=== PATIENT | male | born 1975 | race Hispanic/Latino ===

== ENCOUNTER 2018-04-12 02:25 | Emergency (ER) | payer BC, MEDICAID ==
[2018-04-12] MEDS ORDERED: Ketorolac Tromethamine 60 MG/2 ML VIAL ONE (03:21)
[2018-04-12] MEDS ORDERED: Adacel (T-DAP) 0.5 ML VIAL ONE (03:27)
--- NOTE | 2018-04-12 08:06 | RAD ---
RIGHT KNEE FOUR VIEWS: History: Right knee pain. FINDINGS/IMPRESSION: No fracture or dislocation are seen. No radiopaque foreign body is identified. POS: [id number]
== END 2018-04-12 04:01 | disposition home or self-care (01) ==
LOC: ERS 02:25
DX: M25.561 Pain in right knee (principal); Z79.899 Other long term (current) drug therapy
CPT/HCPCS: 90471; 90715; 96372; J1885

== ENCOUNTER 2018-04-14 13:58 | Emergency (ER) | payer BC | END 2018-04-14 15:00 | disposition home or self-care (01) | LOC: ERS 13:58 | DX: S80.211A Abrasion, right knee, initial encounter (principal); M54.31 Sciatica, right side; W25.XXXA Contact with sharp glass, initial encounter | CPT/HCPCS: 99283 ==

== ENCOUNTER 2018-09-24 10:05 | Emergency (ER) | payer BC | END 2018-09-24 12:21 | disposition home or self-care (01) | LOC: ERS 10:05 | DX: S46.912A Strain of unspecified muscle, fascia and tendon at shoulder and upper arm level, left arm, initial encounter (principal); I10 Essential (primary) hypertension; Z79.891 Long term (current) use of opiate analgesic; X58.XXXA Exposure to other specified factors, initial encounter | CPT/HCPCS: 93005 ==

== ENCOUNTER 2019-03-17 21:53 | Emergency (ER) | payer BC | END 2019-03-17 22:06 | disposition home or self-care (01) | LOC: ERS 21:53 | DX: G89.29 Other chronic pain (principal); M25.512 Pain in left shoulder; I10 Essential (primary) hypertension; Z79.899 Other long term (current) drug therapy | CPT/HCPCS: 99281 ==

== ENCOUNTER 2019-03-28 18:04 | Emergency (ER) | payer BC ==
[2019-03-28] MEDS ORDERED: Dicyclomine 20 MG TAB ONE (20:44)
[2019-03-28 20:49] LABS: #Basophils 0.1 thou/uL (0.0-0.2); #Eosinphils 0.3 thou/uL (0.0-0.7); #Lymphocytes 1.5 thou/uL (1.20-3.40); #Monocytes 0.7 thou/uL (0.11-0.59); #Neutrophils 7.2 thou/uL (1.40-6.50); %Basophils 0.6 % (0.0-1.0); %Eosinophils 2.8 % (0.0-10.0); %Lymphocytes 15.7 % (21.0-51.0); %Monocytes 6.8 % (0.0-10.0); %Neutrophils 74.2 % (42.0-75.0); Mean Corpuscular HGB CONC 34.7 g/dL (32.0-36.0); Mean Corpuscular Hemoglobin 33.4 pg (27.0-31.0); Mean Corpuscular Volume 96.2 fL (78.0-98.0); Platelet Count 324 thou/uL (130-400); RBC Distribution Width 11.7 % (11.5-14.5); White Blood Cell (WBC) Count 9.7 thou/uL (4.8-10.8)
[2019-03-28 21:09] LABS: ALT (SGPT) 48 U/L (8-55); AST (SGOT) 25 U/L (5-34); Albumin 4.3 g/dL (3.5-5.0); Alkaline Phosphatase 130 U/L (40-150); Anion Gap 12 mmol/L (10-20); BUN (Urea Nitrogen) 6 mg/dL (8.9-20.6); Bilirubin, Total 0.7 mg/dL (0.2-1.2); Calc. Creatinine Clearance 0 mL/min (70-130); Carbon Dioxide 26 mmol/L (22-29); Chloride 103 mmol/L (98-107); Estimated GFR-MDRD Greater than 90; Globulin 3.2 g/dL (2.4-3.5); Glucose 100 mg/dL (70-105); Potassium 3.7 mmol/L (3.5-5.1); Protein, Total 7.5 g/dL (6.0-8.3); Sodium 137 mmol/L (136-145)
== END 2019-03-28 21:59 | disposition home or self-care (01) ==
LOC: ERS 18:04
DX: R19.7 Diarrhea, unspecified (principal); I10 Essential (primary) hypertension; Z79.899 Other long term (current) drug therapy
CPT/HCPCS: 36415; 80053; 85025; 99284

== ENCOUNTER 2019-04-30 03:25 | Emergency (ER) | payer BC ==
[2019-04-30] MEDS ORDERED: Ketorolac Tromethamine 60 MG/2 ML VIAL ONE (04:00)
== END 2019-04-30 04:20 | disposition home or self-care (01) ==
LOC: ERS 03:25
DX: G89.18 Other acute postprocedural pain (principal)
CPT/HCPCS: 96372; 99282; J1885

== ENCOUNTER 2022-03-06 11:27 | Emergency (ER) | payer OTHER ==
[2022-03-06] MEDS ORDERED: Ibuprofen 800 MG TAB ONE (12:12)
[2022-03-06 12:40] LABS: #Basophils 0.1 thou/uL (0.0-0.2); #Eosinphils 0.1 thou/uL (0.0-0.7); #Lymphocytes 1.7 thou/uL (1.20-3.40); #Monocytes 0.5 thou/uL (0.11-0.59); #Neutrophils 3.7 thou/uL (1.40-6.50); %Basophils 1.1 % (0.0-1.0); %Eosinophils 1.6 % (0.0-10.0); %Lymphocytes 28.5 % (21.0-51.0); %Monocytes 8.7 % (0.0-10.0); %Neutrophils 60.1 % (42.0-75.0); Hemoglobin 14.5 g/dL (14.0-18.0); Mean Corpuscular HGB CONC 33.4 g/dL (32.0-36.0); Mean Corpuscular Hemoglobin 32.9 pg (27.0-31.0); Mean Corpuscular Volume 98.7 fL (78.0-98.0); Mean Platelet Volume 7.3 fL (7.4-10.4); Platelet Count 286 thou/uL (130-400); RBC Distribution Width 11.8 % (11.5-14.5); White Blood Cell (WBC) Count 6.1 thou/uL (4.8-10.8)
[2022-03-06 13:13] LABS: Anion Gap 10 mmol/L (10-20); BUN (Urea Nitrogen) 6 mg/dL (8.9-20.6); Calc. Creatinine Clearance 0 mL/min (70-130); Calcium 8.9 mg/dL (7.8-10.44); Carbon Dioxide 25 mmol/L (22-29); Chloride 107 mmol/L (98-107); Estimated GFR 109; Glucose 165 mg/dL (70-105); Potassium 4.3 mmol/L (3.5-5.1); Sodium 138 mmol/L (136-145)
== END 2022-03-06 14:08 | disposition home or self-care (01) ==
LOC: ERS 11:27
DX: B34.9 Viral infection, unspecified (principal); I10 Essential (primary) hypertension; Z20.822 Contact with and (suspected) exposure to COVID-19; Z79.899 Other long term (current) drug therapy
CPT/HCPCS: 80048; 85025; 93005; 96360; U0003; U0005

== ENCOUNTER 2022-03-09 01:07 | Emergency (ER) | payer OTHER | END 2022-03-09 04:39 | disposition home or self-care (01) | LOC: ERS 01:07 | DX: G62.9 Polyneuropathy, unspecified (principal); I10 Essential (primary) hypertension; Z79.899 Other long term (current) drug therapy | CPT/HCPCS: 99281 ==

== ENCOUNTER 2023-03-07 11:57 | Emergency (ER) | payer OTHER ==
[2023-03-07] MEDS ORDERED: Ibuprofen 200 MG TAB ONE (13:03)
== END 2023-03-07 14:13 | disposition home or self-care (01) ==
LOC: ERS 11:57
DX: S16.1XXA Strain of muscle, fascia and tendon at neck level, initial encounter (principal); I10 Essential (primary) hypertension; V43.92XA Unspecified car occupant injured in collision with other type car in traffic accident, initial encounter
CPT/HCPCS: 72125

== ENCOUNTER 2023-04-05 20:47 | Emergency (ER) | payer OTHER ==
[2023-04-05] MEDS ORDERED: Ketorolac Tromethamine 30 MG/ML VIAL ONE (21:20)
[2023-04-05] MEDS ORDERED: fentaNYL 50 mcg/mL 1 mL Vial ONE (21:20)
== END 2023-04-05 21:45 | disposition home or self-care (01) ==
LOC: ERS 20:47
DX: M54.2 Cervicalgia (principal); G89.29 Other chronic pain; I10 Essential (primary) hypertension
CPT/HCPCS: 96372; 99283; J1885; J3010

== ENCOUNTER 2023-07-14 09:42 | Outpatient (CLI) | payer OTHER | END 2023-07-14 09:43 | disposition home or self-care (01) | LOC: MRI 09:42 | PROVIDERS: ATTEND Family Medicine | DX: S16.1XXD Strain of muscle, fascia and tendon at neck level, subsequent encounter (principal); M47.812 Spondylosis without myelopathy or radiculopathy, cervical region | CPT/HCPCS: 72141 ==

== ENCOUNTER 2025-03-08 06:02 | Emergency (ER) | payer BC ==
[2025-03-08 07:55] LABS: Anion Gap 13 mmol/L (10-20); BUN (Urea Nitrogen) 13 mg/dL (8.9-20.6); Calc. Creatinine Clearance 0 mL/min (70-130); Calcium 8.3 mg/dL (7.8-10.44); Carbon Dioxide 21 mmol/L (22-29); Chloride 109 mmol/L (98-107); Glucose 156 mg/dL (70-105); Potassium 4.1 mmol/L (3.5-5.1); Sodium 139 mmol/L (136-145)
== END 2025-03-08 08:10 | disposition home or self-care (01) ==
LOC: ERS 06:02
DX: T67.5XXA Heat exhaustion, unspecified, initial encounter (principal); E86.0 Dehydration; I10 Essential (primary) hypertension; E11.9 Type 2 diabetes mellitus without complications; R29.700 NIHSS score 0
CPT/HCPCS: 36416; 80048; 99284

== ENCOUNTER 2025-03-15 14:31 | Emergency (ER) | payer BC ==
[2025-03-15 15:38] LABS: #Basophils 0.07 10x3/uL (0.0-0.2); #Eosinophils Less than 0.03 10x3/uL (0.0-0.7); #Monocytes 0.53 10x3/uL (0.11-0.59); #Neutrophils 5.39 10x3/uL (1.40-6.50); %Basophils 0.9 % (0.0-1.0); %Eosinophils 0.3 % (0.0-10.0); %Lymphocytes 23.3 % (21.0-51.0); %Monocytes 6.8 % (0.0-10.0); %Neutrophils 68.6 % (42.0-75.0); Hematocrit 45.4 % (42.0-52.0); Hemoglobin 15.3 g/dL (14.0-18.0); Mean Corpuscular Hemoglobin 31.6 pg (27.0-31.0); Mean Corpuscular Volume 93.8 fL (78.0-98.0); Platelet Count 341 10x3/uL (130-400); Red Blood Cell (RBC) Count 4.84 mill/uL (4.70-6.10); White Blood Cell (WBC) Count 7.85 10x3/uL (4.8-10.8)
[2025-03-15 15:56] LABS: ALT (SGPT) 35 U/L (Less than 45); AST (SGOT) 25 U/L (11-34); Albumin 4.6 g/dL (3.1-4.5); Alkaline Phosphatase 103 U/L (40-110); Anion Gap 14 mmol/L (10-20); BUN (Urea Nitrogen) 9 mg/dL (8.9-20.6); Bilirubin, Total 1.0 mg/dL (0.3-1.2); CK (CPK) 105 U/L (30-200); Calc. Creatinine Clearance 0 mL/min (70-130); Calcium 9.4 mg/dL (7.8-10.44); Carbon Dioxide 24 mmol/L (22-29); Chloride 103 mmol/L (98-107); Globulin 3.6 g/dL (2.4-3.5); Glucose 142 mg/dL (70-105); Magnesium 2.1 mg/dL (1.6-2.6); Potassium 4.2 mmol/L (3.5-5.1); Sodium 137 mmol/L (136-145)
== END 2025-03-15 18:22 | disposition home or self-care (01) ==
LOC: ERS 14:31
DX: R42 Dizziness and giddiness (principal); R29.700 NIHSS score 0; I10 Essential (primary) hypertension; R73.03 Prediabetes; Z55.6 Problems related to health literacy
CPT/HCPCS: 36415; 70450; 71045; 80053; 82550; 83735; 84484; 85025; 93005